=== PATIENT | female | born 1970 | race Caucasian/White ===

== ENCOUNTER 2016-06-10 08:00 | Outpatient (CLI) | payer BC | END 2016-06-10 23:59 | disposition home or self-care (01) | DX: N39.0 Urinary tract infection, site not specified (principal); R30.0 Dysuria ==

== ENCOUNTER 2016-06-13 10:07 | Outpatient (CLI) | payer BC | END 2016-06-13 10:08 | disposition home or self-care (01) | DX: E55.9 Vitamin D deficiency, unspecified (principal); R53.83 Other fatigue ==

== ENCOUNTER 2017-01-19 11:26 | Outpatient (CLI) | payer BC | END 2017-01-19 11:27 | disposition home or self-care (01) | LOC: LAB.F 11:26 | PROVIDERS: ATTEND Physician Assistant Medical | DX: R63.5 Abnormal weight gain (principal); R53.83 Other fatigue | CPT/HCPCS: 36415; 84443 ==

== ENCOUNTER 2017-01-22 14:34 | Outpatient (CLI) | payer BC ==
[2017-01-22 19:01] LABS: FOLLICLE STIMULATING HORMONE 105.23 mIU/mL
[2017-01-22 19:02] LABS: LUTEINIZING HORMONE 90.37 mIU/mL
== END 2017-01-22 14:35 | disposition home or self-care (01) ==
LOC: LAB.F 14:34
PROVIDERS: ATTEND Physician Assistant Medical
DX: N95.1 Menopausal and female climacteric states (principal)
CPT/HCPCS: 36415; 82670; 83001; 83002

== ENCOUNTER 2017-03-09 14:48 | Outpatient (CLI) | payer BC ==
[2017-03-09 18:48] LABS: ALBUMIN/GLOBULIN RATIO 1.5 (1.0-2.2); BILIRUBIN,TOTAL 0.6 mg/dL (0.2-1.0); CALCIUM 9.5 mg/dL (8.5-10.3); CREATININE 0.8 mg/dL (0.4-1.0); POTASSIUM 3.9 mmol/L (3.5-5.0); TOTAL PROTEIN 7.3 g/dL (6.7-8.2)
== END 2017-03-09 14:49 | disposition home or self-care (01) ==
LOC: LAB.F 14:48
PROVIDERS: ATTEND Physician Assistant Medical
DX: N95.1 Menopausal and female climacteric states (principal); Z79.890 Hormone replacement therapy
CPT/HCPCS: 36415; 80053; 82670

== ENCOUNTER 2017-11-19 08:00 | Outpatient (CLI) | payer BC | END 2017-11-19 08:01 | disposition home or self-care (01) | LOC: LAB.R 08:00 | PROVIDERS: ATTEND Obstetrics & Gynecology | DX: N95.2 Postmenopausal atrophic vaginitis (principal) | CPT/HCPCS: 87480; 87510; 87660 ==

== ENCOUNTER 2018-02-18 15:32 | Emergency (ER) | payer BC ==
[2018-02-18 15:43] VITALS: BP 114/69
--- NOTE | 2018-02-18 16:16 | XRAY Report ---
Reason: coccygeal pain Procedure Date: 02/18/2018 Accession Number: [id number] / [id number] Procedure: XR - Sacrum/Coccyx CPT Code: FULL RESULT: EXAM: SACRUM AND COCCYX RADIOGRAPHY EXAM DATE: 02/18/2018 04:07 PM. HISTORY: Coccygeal pain. COMPARISONS: None. TECHNIQUE: 2 views. FINDINGS: Alignment: Normal. The sacrum and coccyx are normally aligned. Bones: Normal. No fracture or bone lesion. Joints: Normal. The sacroiliac joints and visualized hips are within normal limits. Soft Tissues: Unremarkable. IMPRESSION: Normal sacrum and coccyx radiography. [facility]
--- NOTE | 2018-02-18 16:26 | ED Physician Documentation ---
History of Present Illness - Stated complaint Stated Complaint: TAILBONE PX - Chief complaint Chief Complaint: General - History obtained from History obtained from: Patient - History of Present Illness Timing: How many weeks ago (2) - Additonal information Additional information: The patient is a 48-year-old female who presents with coccygeal pain. Her symptoms started 2 weeks ago while on an airplane, and have persisted since that time. She denies any traumatic injury. She denies fever, and denies pain with bowel movements. She has no history of similar symptoms in the past. She denies numbness or weakness in her lower extremities. Review of Systems Constitutional: denies: Fever Respiratory: denies: Dyspnea, Cough GI: denies: Abdominal Pain, Nausea, Vomiting : denies: Dysuria Skin: denies: Rash Musculoskeletal: reports: Other (Coccygeal pain.). 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: Ovarian cysts : None HEENT: None Psych: Depression, Anxiety, Panic attacks Musculoskeletal: Osteoarthritis, Other Derm: None - Past Surgical History Past Surgical History: Yes Ortho: Other /EXCAVATOR OPERATOR: Tubal ligation - Present Medications Home Medications: Ambulatory Orders Medication Instructions Recorded Confirmed Bupropion HCl [Wellbutrin] 150 mg PO BID 10/22/14 09/03/15 Cyclobenzaprine [Flexeril] 10 mg PO DAILY 10/22/14 09/03/15 Ondansetron Odt [Zofran] 4 mg TL Q6H PRN #10 tablet 10/22/14 09/03/15 Acyclovir 400 mg PO BID 09/03/15 09/03/15 Hydrocodone/Acetaminophen [Vicodin 1 each PO QID PRN 02/18/18 02/18/18 Es 7.5-300 mg Tablet] Menopause Medication 02/18/18 cephALEXin [Cephalexin] 500 mg PO TID #21 tablet 02/18/18 - Allergies Allergies/Adverse Reactions: Allergies Allergy/AdvReac Type Severity Reaction Status Date / Time No Known Drug Allergies Allergy Verified 02/18/18 15:42 - Social History Does the pt smoke?: Yes Smoking Status: Current every day smoker Does the pt drink ETOH?: No Does the pt have substance abuse?: No - POLST Patient has POLST: No PD ED PE NORMAL - Vitals Vital signs reviewed: Yes (normal) - General General: Alert and oriented X 3, Well developed/nourished - HEENT HEENT: Atraumatic - Respiratory Respiratory: No respiratory distress - Abdomen Abdomen: Soft, Non tender - Back Back: No CVA TTP, Other (There is tenderness to palpation over the coccygeal segments. There is no soft tissue swelling or erythema. There is no break in the integument.) - Derm Derm: No rash - Extremities Extremities: No edema, No calf tenderness / cord - Neuro Neuro: Alert and oriented X 3, No motor deficit, No sensory deficit Results - Vitals Vitals: Oxygen O2 Source Room air - Rads (name of study) sacral/coccygeal xray Radiology: Prelim report reviewed, EMP read contemporaneously, See rad report (Normal sacrum and coccygeal radiography.) PD MEDICAL DECISION MAKING - ED course Complexity details: reviewed results, re-evaluated patient, considered differential, d/w patient ED course: The underlying cause for the patient's coccygeal pain is uncertain at this time. There is no bony abnormality detected on x-ray examination. There is no evidence of abscess or cellulitis on examination. She does not have a history of traumatic injury. I discussed with her the results of her examination and x-ray. Out of concern for a possible early infectious etiology, she is being discharged with prescription for cephalexin. I discussed with her the importance of outpatient follow-up, as well as potentially worrisome signs or symptoms that should prompt reevaluation in the emergency department. Departure - Departure Disposition: 01 Home, Self Care Clinical Impression: Coccygeal pain Condition: Stable Instructions: ED Contusion Sacrum Coccyx Follow-Up: [facility] [Provider Group] Prescriptions: cephALEXin [Cephalexin] 500 mg PO TID #21 tablet Comments: Take cephalexin 3 times daily as prescribed. You can use up to 800 mg 3 times daily for its anti-inflammatory effect. Follow-up with your primary physician within 2 weeks. Call to schedule appointment. Return to the emergency department if increasing pain or swelling in the coccygeal region, or otherwise worsening symptoms. Discharge Date/Time: 02/18/18 16:42
== END 2018-02-18 16:42 | disposition home or self-care (01) ==
LOC: ED 15:32
DX: M53.3 Sacrococcygeal disorders, not elsewhere classified (principal); F17.200 Nicotine dependence, unspecified, uncomplicated
CPT/HCPCS: 72220; 99283

== ENCOUNTER 2018-05-03 13:36 | Outpatient (CLI) | payer BC ==
[2018-05-03 19:16] LABS: BASOPHILS % (AUTO) 0.3 %; EOSINOPHILS % (AUTO) 0.6 %; LYMPHOCYTES # (AUTO) 2.3 10^3/uL (1.5-3.5); LYMPHOCYTES % (AUTO) 28.1 %; MEAN CORPUSCULAR HEMOGLOBIN 31.9 pg (27.0-31.0); MEAN CORPUSCULAR HGB CONC 33.1 g/dL (32.0-36.0); MEAN CORPUSCULAR VOLUME 96.4 fL (81.0-99.0); MEAN PLATELET VOLUME 8.8 fL (7.9-10.8); MONOCYTES # (AUTO) 0.3 10^3/uL (0.0-1.0); MONOCYTES % (AUTO) 3.9 %; NEUTROPHILS # (AUTO) 5.5 10^3/uL (1.5-6.6); NEUTROPHILS % (AUTO) 67.1 %; PLT - PLATELET COUNT 252 10^3/uL (130-450); RED CELL DISTRIBUTION WIDTH 14.2 % (12.0-15.0); WHITE BLOOD COUNT 8.3 x10^3/uL (4.8-10.8)
[2018-05-03 19:45] LABS: ALBUMIN 3.8 g/dL (3.2-5.5); ALBUMIN/GLOBULIN RATIO 1.3 (1.0-2.2); BILIRUBIN,TOTAL 0.5 mg/dL (0.2-1.0); CALCIUM 9.2 mg/dL (8.5-10.3); CREATININE 0.9 mg/dL (0.4-1.0); TOTAL PROTEIN 6.7 g/dL (6.7-8.2)
[2018-05-03 19:48] LABS: THYROID STIMULATING HORMONE 0.87 uIU/mL (0.34-5.60)
[2018-05-03 19:50] LABS: FREE T4 (FREE THYROXINE) 0.83 ng/dL (0.58-1.64)
== END 2018-05-03 23:59 | disposition home or self-care (01) ==
LOC: LAB.N 13:36
PROVIDERS: ATTEND Obstetrics & Gynecology
DX: R68.82 Decreased libido (principal); N95.1 Menopausal and female climacteric states
CPT/HCPCS: 36415; 80053; 82670; 84439; 84443; 85025

== ENCOUNTER 2018-05-03 13:36 | Outpatient (CLI) | payer BC ==
--- NOTE | 2018-05-04 01:35 | XRAY Report ---
Reason: TOBACCO ABUSE Procedure Date: 05/03/2018 Accession Number: [id number] / [id number] Procedure: XRN - Chest 2 View X-Ray CPT Code: 82408 FULL RESULT: EXAM: CHEST RADIOGRAPHY EXAM DATE: 05/03/2018 01:56 PM. CLINICAL HISTORY: TOBACCO ABUSE. COMPARISON: CXR 10/27/2005 11:50 PM. TECHNIQUE: 2 views. FINDINGS: Lungs/Pleura: No focal opacities evident. No pleural effusion. No pneumothorax. Normal volumes. Mediastinum: Heart and mediastinal contours are unremarkable. Other: None. IMPRESSION: Normal 2-view chest radiography. [facility]
== END 2018-05-03 13:37 | disposition home or self-care (01) ==
LOC: DI.N 13:36
PROVIDERS: ATTEND Registered Nurse
DX: F17.200 Nicotine dependence, unspecified, uncomplicated (principal); R68.82 Decreased libido; N95.1 Menopausal and female climacteric states
CPT/HCPCS: 36415; 71046; 80053; 82670; 84439; 84443; 85025

== ENCOUNTER 2018-08-16 08:00 | Outpatient (CLI) | payer BC | END 2018-08-16 23:59 | disposition home or self-care (01) | LOC: LAB.R 08:00 | PROVIDERS: ATTEND Physician Assistant Medical | DX: N39.0 Urinary tract infection, site not specified (principal) | CPT/HCPCS: 87077; 87086; 87181 ==

== ENCOUNTER 2018-08-19 08:01 | Outpatient (CLI) | payer BC | END 2018-08-19 08:02 | disposition home or self-care (01) | LOC: LAB.F 08:01 | PROVIDERS: ATTEND Physician Assistant Medical | DX: N95.1 Menopausal and female climacteric states (principal); N39.0 Urinary tract infection, site not specified | CPT/HCPCS: 36415; 84403; 87086 ==

== ENCOUNTER 2018-08-19 14:36 | Emergency (ER) | payer BC ==
[2018-08-19] MEDS ORDERED: CHERRY SYRUP 10 ML UDC PO ONE (16:17)
[2018-08-19] MEDS ORDERED: DEXAMETHASONE 10 MG/ML VIAL PO STA (16:17)
[2018-08-19] MEDS ORDERED: KETOROLAC 60 MG/2 ML VIAL IM STA (16:17)
--- NOTE | 2018-08-19 16:20 | ED Physician Documentation ---
PD HPI BACK PAIN - Stated complaint Stated Complaint: BACK PAIN - Chief complaint Chief Complaint: Back Pain - History obtained from History obtained from: Patient - History of Present Illness Timing - onset: Today Timing - duration: Hours Timing - details: Abrupt onset, Still present Location: Lower, Left Quality: Pain, Spasm, Sharp Associated symptoms: No: Fever, Weakness, Numbness, Incontinent of urine, Unable to urinate, Hematuria, Incontinent of stool Improves with: Rest, Position Worsened by: Movement, Lifting, Twisting Contributing factors: Other (lifted something heavy earlier in the week.) Similar symptoms before: Has not had sx before Recently seen: Not recently seen - Additional information Additional information: 48-year-old female was at home in her usual state of health today when she bent over to sisal picker something and had sudden onset of severe spasm in the left lower back. She has radiation of the pain down her leg on the outside of her leg. She has retained strength to both of her legs and does not have any perineal anesthesia denies any change in her bowel or bladder. Review of Systems Constitutional: denies: Fever Eyes: denies: Decreased vision Ears: denies: Ear pain Nose: denies: Congestion Throat: denies: Sore throat Respiratory: denies: Cough GI: denies: Abdominal Pain, Abdominal Swelling, Nausea, Vomiting : denies: Dysuria, Frequency Musculoskeletal: reports: Back pain. 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: Ovarian cysts : None HEENT: None Psych: Depression, Anxiety, Panic attacks Musculoskeletal: Osteoarthritis, Other Derm: None - Past Surgical History Past Surgical History: Yes Ortho: Other /POLICEWOMAN: Tubal ligation - Present Medications Home Medications: Ambulatory Orders Medication Instructions Recorded Confirmed Bupropion HCl [Wellbutrin] 150 mg PO BID 10/22/14 09/03/15 Cyclobenzaprine [Flexeril] 10 mg PO DAILY 10/22/14 09/03/15 Ondansetron Odt [Zofran] 4 mg TL Q6H PRN #10 tablet 10/22/14 09/03/15 Acyclovir 400 mg PO BID 09/03/15 09/03/15 Hydrocodone/Acetaminophen [Vicodin 1 each PO QID PRN 02/18/18 02/18/18 Es 7.5-300 mg Tablet] Menopause Medication 02/18/18 cephALEXin [Cephalexin] 500 mg PO TID #21 tablet 02/18/18 Cyclobenzaprine [Flexeril] 10 mg PO TID PRN #20 tablet 08/19/18 Hydrocodone/Acetaminophen 1 - 2 each PO Q6H PRN #14 tablet 08/19/18 [Hydrocodon-Acetaminophen 5-325] - Allergies Allergies/Adverse Reactions: Allergies Allergy/AdvReac Type Severity Reaction Status Date / Time No Known Drug Allergies Allergy Verified 08/19/18 14:55 - Social History Does the pt smoke?: Yes Smoking Status: Current every day smoker Does the pt drink ETOH?: Yes Does the pt have substance abuse?: No - Immunizations Immunizations are current?: No Immunizations: TDAP >10years/unknown - POLST Patient has POLST: No PD ED PE NORMAL - Vitals Vital signs reviewed: Yes (normal ) - General General: Alert and oriented X 3, Well developed/nourished, Other (splinted favoring the left lower back while sitting ) - HEENT HEENT: Atraumatic, PERRL, EOMI - Respiratory Respiratory: No respiratory distress - Back Back: No CVA TTP, No spinal TTP, Other (tenderness to the paraspinous muscles of the lower lumbar spine on the left side extending into the sciatic notch.) - Derm Derm: Normal color, Warm and dry, No rash - Extremities Extremities: No deformity, No edema - Neuro Neuro: Alert and oriented X 3, cotton ball bagger 2-12 intact, No motor deficit, No sensory deficit, Normal speech Eye Opening: Spontaneous Motor: Obeys Commands Verbal: Oriented GCS Score: 15 - Psych Psych: Normal mood, Normal affect Results - Vitals Vitals: Vital Signs - 24 hr 08/19/18 14:52 Temperature 36.4 C L Heart Rate 78 Respiratory 16 Rate Blood Pressure 110/69 O2 Saturation 99 Oxygen O2 Source Room air PD MEDICAL DECISION MAKING - ED course Complexity details: considered differential, d/w patient ED course: 48-year-old female with acute lumbar spasm and sciatica has a loading injury several days ago she is administered dexamethasone 10 mg orally and Toradol 60 mg IM. Departure - Departure Disposition: Home, Self Care Clinical Impression: Sciatica Qualifiers: Laterality: left Qualified Code(s): M54.32 - Sciatica, left side Condition: Stable Instructions: ED Sciatica Follow-Up: Minna Rossi PA-C [Primary Care Provider] - Prescriptions: Cyclobenzaprine [Flexeril] 10 mg PO TID PRN #20 tablet PRN Reason: Spasms Hydrocodone/Acetaminophen [Hydrocodon-Acetaminophen 5-325] 1 - 2 each PO Q6H PRN #14 tablet PRN Reason: pain
[2018-08-19 16:38] VITALS: BP 101/66
== END 2018-08-19 16:39 | disposition home or self-care (01) ==
LOC: ED 14:36
DX: M54.42 Lumbago with sciatica, left side (principal); X50.1XXA Overexertion from prolonged static or awkward postures, initial encounter; Y93.89 Activity, other specified; Y92.009 Unspecified place in unspecified non-institutional (private) residence as the place of occurrence of the external cause; F17.200 Nicotine dependence, unspecified, uncomplicated; N95.1 Menopausal and female climacteric states; N39.0 Urinary tract infection, site not specified
CPT/HCPCS: 36415; 84403; 87086; 96372; 99283; A9270

== ENCOUNTER 2018-09-03 17:17 | Emergency (ER) | payer BC ==
[2018-09-03] MEDS ORDERED: DEXAMETHASONE 10 MG/ML VIAL IM STA (18:22)
[2018-09-03] MEDS ORDERED: KETOROLAC 60 MG/2 ML VIAL IM STA (18:22)
--- NOTE | 2018-09-03 18:24 | ED Physician Documentation ---
PD HPI BACK INJURY - Stated complaint Stated Complaint: BACK PX - History obtained from History obtained from: Patient - History of Present Illness Location: Left (48-year-old woman with chronic hip pain presents with back pain that started 2 weeks ago. It is in the left lumbar spine and radiates into the buttock. It got better after treatment here couple of weeks ago but recurred last night after cleaning the floors. 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 : None HEENT: None Psych: Depression, Anxiety, Panic attacks Musculoskeletal: Osteoarthritis, Other Derm: None - Past Surgical History Past Surgical History: Yes Ortho: Other /CAREER TECHNICAL SUPERVISOR: Tubal ligation - Present Medications Home Medications: Ambulatory Orders Medication Instructions Recorded Confirmed Bupropion HCl [Wellbutrin] 150 mg PO BID 10/22/14 09/03/15 Ondansetron Odt [Zofran] 4 mg TL Q6H PRN #10 tablet 10/22/14 09/03/18 RX: Cyclobenzaprine [Flexeril] 10 mg PO DAILY 10/22/14 09/03/15 RX: Acyclovir 400 mg PO BID 09/03/15 09/03/15 Hydrocodone/Acetaminophen [Vicodin 1 each PO QID PRN 02/18/18 02/18/18 Es 7.5-300 mg Tablet] Menopause Medication 02/18/18 RX: cephALEXin [Cephalexin] 500 mg PO TID #21 tablet 02/18/18 Cyclobenzaprine [Flexeril] 10 mg PO TID PRN #20 tablet 08/19/18 Hydrocodone/Acetaminophen 1 - 2 each PO Q6H PRN #14 tablet 08/19/18 09/03/18 [Hydrocodon-Acetaminophen 5-325] Oxycodone HCl/Acetaminophen 1 - 2 each PO Q6H PRN #14 tablet 09/03/18 [Percocet 5-325 mg Tablet] RX: predniSONE [Deltasone] 20 mg PO [id number] #21 tab 09/03/18 - Allergies Allergies/Adverse Reactions: Allergies Allergy/AdvReac Type Severity Reaction Status Date / Time No Known Drug Allergies Allergy Verified 09/03/18 17:38 - Social History Does the pt smoke?: Yes Smoking Status: Current every day smoker Does the pt drink ETOH?: Yes Does the pt have substance abuse?: No - Immunizations Immunizations are current?: No Immunizations: TDAP >10years/unknown - POLST Patient has POLST: No PD ED PE NORMAL - Vitals Vital signs reviewed: Yes - General General: Alert and oriented X 3, Other (Slightly uncomfortable, laying right lateral decubitus) - Back Back: No spinal TTP, Other (Tender in the left sciatic notch with slightly diminished sensation over the left thigh and medial calf, but intact Achilles and patellar reflexes and flexion extension at the ankles.) - Derm Derm: Normal color, No rash - Neuro Neuro: Alert and oriented X 3, Normal speech Results - Vitals Vitals: Vital Signs - 24 hr 09/03/18 09/03/18 17:35 20:12 Temperature 36.8 C Heart Rate 76 67 Respiratory 15 18 Rate Blood Pressure 110/43 L 111/64 O2 Saturation 97 96 Oxygen O2 Source Room air - Labs Labs: Laboratory Tests 09/03/18 18:58 Urine Color YELLOW Urine Clarity CLEAR Urine pH 7.0 Ur Specific [place] 1.010 Urine Protein NEGATIVE Urine Glucose (UA) NEGATIVE Urine Ketones NEGATIVE Urine Occult Blood NEGATIVE Urine Nitrite NEGATIVE Urine Bilirubin NEGATIVE Urine Urobilinogen 0.2 (NORMAL) Ur Leukocyte Esterase NEGATIVE Ur Microscopic Review NOT INDICATED Urine Culture Comments NOT INDICATED PD MEDICAL DECISION MAKING - ED course ED course: 48-year-old woman who presents with left-sided sciatica. She had a concern about renal colic, but seemed inconsistent to me. The urinalysis was checked and negative for hematuria. After the administration of IM medications she was feeling much better. Departure - Departure Disposition: 01 Home, Self Care Clinical Impression: Sciatica Condition: Good Record reviewed to determine appropriate education?: Yes Instructions: ED Sciatica Prescriptions: Oxycodone HCl/Acetaminophen [Percocet 5-325 mg Tablet] 1 - 2 each PO Q6H PRN #14 tablet PRN Reason: pain RX: predniSONE [Deltasone] 20 mg PO [id number] #21 tab Comments: Call your pain management physician on Thursday and let them know about the prescriptions he received today. Return for new or worsening symptoms. Discharge Date/Time: 09/03/18 20:13
[2018-09-03 19:31] LABS: BILIRUBIN,URINE NEGATIVE (NEGATIVE); GLUCOSE, URINE (UA) NEGATIVE (NEGATIVE); KETONES,URINE (UA) NEGATIVE (NEGATIVE); LEUKOCYTE ESTERASE, URINE NEGATIVE (NEGATIVE); NITRITE,URINE NEGATIVE (NEGATIVE); OCCULT BLOOD,URINE NEGATIVE (NEGATIVE); PROTEIN,URINE NEGATIVE (NEGATIVE); UROBILINOGEN,URINE 0.2 (NORMAL) E.U./dL (NORMAL)
[2018-09-03 19:34] LABS: CLARITY,URINE CLEAR (CLEAR)
[2018-09-03] MEDS ORDERED: HYDROmorphone 1 MG/ML CARPUJECT IM STA (19:36)
[2018-09-03 20:13] VITALS: BP 111/64
== END 2018-09-03 20:13 | disposition home or self-care (01) ==
LOC: ED 17:17
DX: M54.42 Lumbago with sciatica, left side (principal); F17.200 Nicotine dependence, unspecified, uncomplicated
CPT/HCPCS: 81003; 96372; 99283; J1170; 81001; 87086

== ENCOUNTER 2018-09-12 17:21 | Emergency (ER) | payer BC ==
[2018-09-12 17:29] VITALS: BP 119/78
[2018-09-12] MEDS ORDERED: BUFFERED LIDOCAINE 10 ML SYRINGE SUBQ STA (17:37)
--- NOTE | 2018-09-12 17:38 | ED Physician Documentation ---
PD HPI UPPER EXT INJURY - Stated complaint Stated Complaint: RT FINGER INJURY - Chief complaint Chief Complaint: Laceration - History obtained from History obtained from: Patient - History of Present Illness Location: Right (She has acrylic nails on and her hand slipped and hit something and tore the acrylic nail off and much of her regular nail off the right thumb at home just prior to arrival. 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 : None HEENT: None Psych: Depression, Anxiety, Panic attacks Musculoskeletal: Osteoarthritis, Other Derm: None - Past Surgical History Past Surgical History: Yes Ortho: Other /PEDIATRIC REGISTERED NURSE: Tubal ligation - Present Medications Home Medications: Ambulatory Orders Medication Instructions Recorded Confirmed Bupropion HCl [Wellbutrin] 150 mg PO BID 10/22/14 09/12/18 Acyclovir 400 mg PO BID 09/03/15 09/12/18 Menopause Medication 02/18/18 Cyclobenzaprine [Flexeril] 10 mg PO TID PRN #20 tablet 08/19/18 09/12/18 Hydrocodone/Acetaminophen 1 - 2 each PO Q6H PRN #14 tablet 08/19/18 09/03/18 [Hydrocodon-Acetaminophen 5-325] predniSONE [Deltasone] 20 mg PO [id number] #21 tab 09/03/18 - Allergies Allergies/Adverse Reactions: Allergies Allergy/AdvReac Type Severity Reaction Status Date / Time No Known Drug Allergies Allergy Verified 09/12/18 17:29 - Social History Does the pt smoke?: Yes Smoking Status: Current every day smoker Does the pt drink ETOH?: Yes Does the pt have substance abuse?: No - Immunizations Immunizations are current?: No Immunizations: TDAP >10years/unknown - POLST Patient has POLST: No PD ED PE NORMAL - Vitals Vital signs reviewed: Yes - General General: Alert and oriented X 3, No acute distress - Extremities Extremities: Other (She has acrylic nails in place, the acrylic nail on the right thumb is basically detention ripped off along with the nail underneath it to the mid nailbed. The break is about detention through the nailbed and horizontal.) - Neuro Neuro: Alert and oriented X 3, Normal speech Results - Vitals Vitals: Vital Signs - 24 hr 09/12/18 17:26 Temperature 36.3 C L Heart Rate 109 H Respiratory 20 Rate Blood Pressure 119/78 O2 Saturation 97 Oxygen O2 Source Room air Procedures - General procedure General procedure: After a digital block with buffered lidocaine the acrylic nail was moved removed in its entirety as well as the distal part of her [place] nail. Departure - Departure Disposition: 01 Home, Self Care Clinical Impression: Fingernail avulsion Qualifiers: Encounter type: initial encounter Qualified Code(s): S61.309A - Unspecified open wound of unspecified finger with damage to nail, initial encounter Condition: Critical Instructions: ED Avulsion Nail Complete
== END 2018-09-12 18:07 | disposition home or self-care (01) ==
LOC: ED 17:21
DX: S61.101A Unspecified open wound of right thumb with damage to nail, initial encounter (principal); W27.8XXA Contact with other nonpowered hand tool, initial encounter; Y93.89 Activity, other specified; F17.200 Nicotine dependence, unspecified, uncomplicated
CPT/HCPCS: 11730; 99282; 99283

== ENCOUNTER 2018-09-27 16:47 | Outpatient (CLI) | payer BC ==
--- NOTE | 2018-09-04 13:58 | ED Physician Documentation ---
ED Addendum - Addendum Addendum: 09/04/18 13:57 Pharmacist called and indicated that Jannie Crespo last filled her 7.5 325 hydrocodone on 08/26/2018 at which time she received her monthly 140 pills. I have asked the pharmacist not to fill the prescription provided by Dr. Argueta yesterday.
--- NOTE | 2018-09-28 09:36 | Mammography Report ---
Reason: SCREENING MAMMO Procedure Date: 09/27/2018 Accession Number: [id number] / [id number] Procedure: JUAN ANTONIO - Screening Mammo w/Roberto CPT Code: FULL RESULT: EXAM: Screening Mammo w/Roberto DATE: 09/27/2018 5:10 PM CLINICAL HISTORY: Screening TECHNIQUE: (B) - Bilateral CC and MLO 2-D and 3-D views were obtained. COMPARISON: None PARENCHYMAL PATTERN: (A) - The breasts demonstrate scattered fibroglandular densities bilaterally. FINDINGS: There are no suspicious masses, calcifications, or areas of distortion. IMPRESSION: Negative examination. BI-RADS category 1. RECOMMENDATION: (ANNUAL) - Recommend routine annual screening mammography. BI-RADS CATEGORY: (1) - Negative. STANDARD QUALIFYING STATEMENTS: 1. This examination was not reviewed with the aid of Computer-Aided Detection (CAD). 2. A negative or benign imaging report should not preclude biopsy if clinically suspicious findings are present. 3. Dense breasts may obscure an underlying neoplasm. 4. This examination was reviewed with the aid of 3D breast imaging (tomosynthesis).
== END 2018-09-27 16:48 | disposition home or self-care (01) ==
LOC: DI 16:47
PROVIDERS: ATTEND Physician Assistant Medical
DX: Z12.31 Encounter for screening mammogram for malignant neoplasm of breast (principal)
CPT/HCPCS: 77063; 77067

== ENCOUNTER 2019-09-06 18:17 | Emergency (ER) | payer BC ==
[2019-09-06] MEDS ORDERED: BUFFERED LIDOCAINE 10 ML SYRINGE SUBQ STA (18:54)
--- NOTE | 2019-09-06 19:59 | ED Physician Documentation ---
PD HPI UPPER EXT INJURY - Stated complaint Stated Complaint: RT WRIST WOUND - Chief complaint Chief Complaint: General - History obtained from History obtained from: Patient - History of Present Illness Location: Right, Forearm Type of injury: Foreign body Where injury occurred: Home Timing - onset: Today Timing - duration: Minutes Timing - details: Abrupt onset, Still present Improved by: Rest, Immobilization Worsened by: Moving, Palpating Associated symptoms: Swelling. No: Weakness, Numbness, Tingling Contributing factors: No: Anticoagulated Similar symptoms before: Diagnosis (spinter) Recently seen: Not recently seen - Additonal information Additional information: 49-year-old female was working in her garden today when she ran her arm against the top of a wooden rail of the raised garden bed and sustained a sliver to the forearm on the right volar aspect. She can feel a foreign body and has pain from a foreign body sensation she is not able to see the end of the foreign body she does have an entry wound associated with a sliver. She believes it would was a 2 x 12 piece of fir. 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: Ovarian cysts : None HEENT: None Psych: Depression, Anxiety, Panic attacks Musculoskeletal: Osteoarthritis, Other Derm: None - Past Surgical History Past Surgical History: Yes Ortho: Other /HORSE GROOMER: Tubal ligation - Present Medications Home Medications: Ambulatory Orders Medication Instructions Recorded Confirmed Bupropion HCl [Wellbutrin] 150 mg PO BID 10/22/14 09/12/18 Acyclovir 400 mg PO BID 09/03/15 09/12/18 Menopause Medication 02/18/18 Cyclobenzaprine [Flexeril] 10 mg PO TID PRN #20 tablet 08/19/18 09/12/18 Hydrocodone/Acetaminophen 1 - 2 each PO Q6H PRN #14 tablet 08/19/18 09/03/18 [Hydrocodon-Acetaminophen 5-325] predniSONE [Deltasone] 20 mg PO [id number] #21 tab 09/03/18 - Allergies Allergies/Adverse Reactions: Allergies Allergy/AdvReac Type Severity Reaction Status Date / Time No Known Drug Allergies Allergy Verified 09/12/18 17:29 - Social History Does the pt smoke?: Yes Smoking Status: Current every day smoker Does the pt drink ETOH?: Yes Does the pt have substance abuse?: No - Immunizations Immunizations are current?: No Immunizations: TDAP >10years/unknown - POLST Patient has POLST: No PD ED PE NORMAL - Vitals Vital signs reviewed: Yes (normal ) - General General: Alert and oriented X 3, No acute distress, Well developed/nourished - HEENT HEENT: Atraumatic, PERRL, EOMI - Respiratory Respiratory: No respiratory distress - Derm Derm: Normal color, Warm and dry, No rash - Extremities Extremities: No deformity, No edema, Other (Over the volar surface of the right forearm over the distal one third there is a puncture wound entering on the ulnar aspect and there is a palpable foreign body under that in a linear fashion directly across from that. 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5 cm incision is made directly over the top of the foreign body and the area was explored and no foreign body was identified. With further exploration a 1.5 cm wooden sliver was removed from the distal end of the incision. This looks like the broken off and of a splinter and there is nothing in the proximal portion of the tract.Two 4-0 sutures were placed to reapproximate the tissues.) PD MEDICAL DECISION MAKING - ED course Complexity details: reviewed results, re-evaluated patient, considered differential, d/w patient ED course: 49-year-old female with a foreign body in the right forearm has successful rem oval of a sliver with incision and exploration. Departure - Departure Disposition: 01 Home, Self Care Clinical Impression: Foreign body of skin of right forearm Condition: Stable Instructions: ED Foreign Body Soft Tissue Removed Follow-Up: Minna Rossi PA-C [Primary Care Provider] -
[2019-09-06 20:11] VITALS: BP 120/70
== END 2019-09-06 20:10 | disposition home or self-care (01) ==
LOC: ED 18:17
DX: S50.851A Superficial foreign body of right forearm, initial encounter (principal); W22.09XA Striking against other stationary object, initial encounter; Y93.H2 Activity, gardening and landscaping; Y92.007 Garden or yard of unspecified non-institutional (private) residence as the place of occurrence of the external cause; F17.200 Nicotine dependence, unspecified, uncomplicated
CPT/HCPCS: 10120

== ENCOUNTER 2019-10-21 17:24 | Emergency (ER) | payer OTHER, BC ==
[2019-10-21] MEDS ORDERED: HYDROmorphone 1 MG/ML CARPUJECT IM STA (17:58)
--- NOTE | 2019-10-21 18:00 | ED Physician Documentation ---
PD HPI LOWER EXT INJURY - Stated complaint Stated Complaint: RT HIP PX - Chief complaint Chief Complaint: Ext Problem - History obtained from History obtained from: Patient - History of Present Illness PD HPI LOW EXT INJURY LOCATION: Right, Hip Type of injury: Fall - Additional information Additional information: 49-year-old woman with chronic right hip pain treated with hydrocodone by her primary care physician. 2 weeks ago she fell, she slipped and then did the splits and then hit her right hip causing an increase and different quality of pain there. She is able to walk and bear weight. The worst thing is when she is rolling over in bed. Pain is unrelieved by hydrocodone. Previous history of the hip as it sounds like she had a torn labrum, then surgeries to treat that, subchondral cysts which were shaved away. 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 - Present Medications Home Medications: Ambulatory Orders Medication Instructions Recorded Confirmed Bupropion HCl [Wellbutrin] 150 mg PO BID 10/22/14 09/12/18 Acyclovir 400 mg PO BID 09/03/15 09/12/18 Menopause Medication 02/18/18 Cyclobenzaprine [Flexeril] 10 mg PO TID PRN #20 tablet 08/19/18 09/12/18 Hydrocodone/Acetaminophen 1 - 2 each PO Q6H PRN #14 tablet 08/19/18 09/03/18 [Hydrocodon-Acetaminophen 5-325] predniSONE [Deltasone] 20 mg PO [id number] #21 tab 09/03/18 Oxycodone HCl/Acetaminophen 1 - 2 each PO Q6H PRN #14 tablet 10/21/19 [Percocet 5-325 mg Tablet] - Allergies Allergies/Adverse Reactions: Allergies Allergy/AdvReac Type Severity Reaction Status Date / Time No Known Drug Allergies Allergy Verified 10/21/19 17:30 - Social History Does the pt smoke?: Yes Smoking Status: Current every day smoker Does the pt drink ETOH?: Yes Does the pt have substance abuse?: No - Immunizations Immunizations are current?: No Immunizations: TDAP >10years/unknown - POLST Patient has POLST: No PD ED PE NORMAL - Vitals Vital signs reviewed: Yes - General General: Alert and oriented X 3, No acute distress - Abdomen Abdomen: Normal bowel sounds, Soft, Non tender - Back Back: No spinal TTP, Other (The patient has equal and normal Achilles and patellar reflexes bilaterally. Normal sensation in all areas of the legs. Patient denies saddle anesthesia. Normal strength in flexion-extension at the ankles, knees, and flexion of the hips.) - Extremities Extremities: Other (Right hip is mildly tender laterally, pain especially with abduction, less so internal and external rotation. No deformity.) - Neuro Neuro: Alert and oriented X 3, Normal speech Results - Vitals Vitals: Vital Signs - 24 hr 10/21/19 10/21/19 17:31 18:31 Temperature 36.5 C Heart Rate 71 70 Respiratory 16 16 Rate Blood Pressure 134/71 H 138/68 H O2 Saturation 99 99 Oxygen O2 Source Room air - Rads (name of study) CT pelvis Radiology: EMP read contemporaneously PD MEDICAL DECISION MAKING - ED course ED course: 49-year-old woman with chronic right hip pain now worse after a fall. CT imaging shows no acute fractures, however my view of the CT images demonstrate vacuum phenomenon in the right SI joints as well as subchondral cysts in the acetabulum. She was given some pain medication here and advised close follow-up with her orthopedic surgeon and given a copy of the CAT scan on CD for follow- up. The [place] prescription monitoring program was queried with regard to this patient. No concerning findings were found. Departure - Departure Disposition: 01 Home, Self Care Clinical Impression: Right hip pain, Fall from ground level Condition: Good Record reviewed to determine appropriate education?: Yes Instructions: Osteoarthritis Common Sites Prescriptions: Oxycodone HCl/Acetaminophen [Percocet 5-325 mg Tablet] 1 - 2 each PO Q6H PRN #14 tablet PRN Reason: pain Comments: Follow-up with your surgeon, soon as possible. Take the CAT scan on CD with you. Return for new or worsening symptoms. Do not drink or drive while taking narcotic pain medication. Note that many narcotic pain relievers also contain Tylenol/acetaminophen. Please ensure that your total dose of acetaminophen from all sources does not exceed 3 g (3000 mg) per day. You may get constipated while on this medication. Take a stool softener such as Colace twice a day while you are on it. Also add an prul-[id number] laxative such as senna or MiraLAX on any day that you do not have a bowel movement. If you received a narcotic pain medication or sedative while in the emergency department, do not drive for the next 24 hours.
--- NOTE | 2019-10-21 18:51 | CT Report ---
PROCEDURE: LOWER EXTREMITY WO - RT INDICATIONS: L hip injury, mult prior surgeries TECHNIQUE: Noncontrast 3 mm axial sections acquired of the right lower extremity, with coronal and sagittal refo rmats. COMPARISON: None. FINDINGS: Image quality: Excellent. Bones: There are no visualized fractures or dislocations. Osseous alignment is within normal limits. Soft tissues: Visualized soft tissue structures within the abdomen and pelvis are within normal limi ts. No adenopathy. IMPRESSION: No visualized fracture or dislocation within the right hip/lower extremity. Reviewed by: Leila Lama MD on 10/21/2019 6:50 PM PDT Approved by: Leila Lama MD on 10/21/2019 6:50 PM PDT Station ID: [id number]
[2019-10-21 19:05] VITALS: BP 127/81
== END 2019-10-21 19:14 | disposition home or self-care (01) ==
LOC: ED 17:24
DX: M25.551 Pain in right hip (principal); G89.29 Other chronic pain; W01.0XXA Fall on same level from slipping, tripping and stumbling without subsequent striking against object, initial encounter; M25.851 Other specified joint disorders, right hip; F17.200 Nicotine dependence, unspecified, uncomplicated
CPT/HCPCS: 73700; 99283; 99284; J1170

== ENCOUNTER 2019-11-08 12:01 | Outpatient (CLI) | payer BC | END 2019-11-08 12:02 | disposition home or self-care (01) | LOC: LAB 12:01 | PROVIDERS: ATTEND Obstetrics & Gynecology | DX: R68.82 Decreased libido (principal); R53.83 Other fatigue | CPT/HCPCS: 36415; 84403; 84443 ==

== ENCOUNTER 2019-11-23 10:41 | Outpatient (CLI) | payer BC ==
[2019-11-23 11:32] VITALS: BP 105/75
--- NOTE | 2019-11-23 11:32 | SLEEP CARE CONSULTATION ---
Information from patient questionnaire entered by Della Lund. I have reviewed and concur with the information entered by Della Lund. This document represents the service I personally performed and the decisions made by me, Alka Saldivar ARNP. History of Present Illness Service Date and Time: 11/23/2019 1041 Reason for Visit: New patient Chief Complaint: reports: Insomnia (nightly, can't stay asleep and sometimes can't get to sleep quickly), Unrefreshed sleep, Snoring, Excessive daytime sleepiness, Observed pauses in breathing, Fatigue, Frequent awakenings at night Duration of Symptoms: years Usual bedtime: 10-11 pm Time it takes to fall asleep: varies Snores at night: Yes Observed to quit breathing while asleep: No (i dont know) Sleeps alone due to snoring: No Number of times waking at night: several Reasons for waking at night: reports: Snoring, Gasping for air, Pain, Bathroom. denies: Choking Toss, Turn, or Twitch while sleeping: Yes Recalls having dreams: Yes (sometimes) Usually gets out of bed at: 5-6 am Feels refreshed in the morning: No Morning headache: Yes (almost every morning, takes something if last longer than hour, 3 x week) Sleepy or fatigued during the day: Yes Ever fallen asleep while driving: No Takes day naps: No Dreams during day naps: No Prior sleep studies: No Additional HPI information: Patient has a history of loud snoring, insomnia, unrefreshed sleep, frequent night awakenings and excessive daytime sleepiness. She states she has trouble going to sleep sometimes but more frequently wakes up during the night and is unable to go back to sleep. She is tired through out the day. She tells me both her daughters snore and there is a history of small lower jaws in her family. She states she wakes up nearly every morning with a headache. She will take an analgesic if is has not gone away in an hour. She states she does not have a history of migraines. - Parasomnia Symptoms Ever been unable to move upon waking from sleep: No Walks in sleep: Yes Talks in sleep: Yes Ever acted out dreams in sleep: Yes (hitting/kicking out during bad dreams) Ever felt weak in the knees when startled or emotional: Yes Bothered by creepy, crawly, restless sensations in legs: Yes (varies, from nightly to intermittent, takes muscle relaxer which helps) Problems with memory or concentration: Yes Subjective Initial [place] Sleepiness Scale score: 15 (in 2019) Past Medical History Past Medical History: reports: Claustrophobia, Arthritis, Anxiety, Depression, GERD, Other (pain management for hips, menopause treatment). denies: Hypertension, Congestive Heart Failure, Diabetes, Stroke, Coronary Heart Disease, Insulin resistance, Arrythmia, Hypothyroidism, Anemia, Mood disorder Social History The patient's occupation is a Retired. Patient is and lives in [place]. Have you smoked in the past 12 months: Yes (trying to quit, prescribed chantrix) Cigarettes per day (20/pack): 20 Years of smokin Smoking Pack Years: 30.0 Alcohol use: No Caffeine use: Yes Caffeine amount and frequency: 4-5 cups a day Family History Family history of sleep disordered breathing: Yes (Dad, Grandma, both daughters) Family Hx Sleep Apnea: Father: Snoring, Grandparent: Snoring Allergies and Home Medications Drug allergies reviewed: Yes (NKDA) Home medication list reviewed: Yes Allergy and home medication list: Diclofenac Sod EC 75 mg Bupropion Hcl XL 300 mg Chantix 1 mg Cyclobenzaprine 10 mg Progesterone 200 mg Hydrocodone 7.5 mg Dottipatch 0.1 mg Estradiol cream 0.1 mg Review of Systems Weight gain over past 5 years: 30 Cardiovascular: reports: leg or foot swelling, have to sleep sitting up. denies: high blood pressure, palpitations, chest pain, irregular heart rate or pulse Respiratory: reports: shortness of breath, chronic cough Gastrointestinal: reports: heartburn, diarrhea. denies: difficulty swallowing Urinary: denies: incontinence, frequency, urgency, impotence, other Neurological: reports: headaches. denies: seizure, head trauma, disorientation, gait or balance problems Psychiatric: reports: anxiety, depression, claustrophobia Ear/Nose/Throat: reports: sinus problems (allergies), dry mouth/throat (wakes up with dry mouth, drinks water; every morning), hoarseness, injury to nose, wisdom teeth removed. denies: nasal congestion, nose bleeds, tonsillectomy Endocrine: reports: sluggishness, too hot or cold Musculoskeletal: reports: joint pain, neck pain, back pain, joint swelling, muscle pain or cramping, mobility problems Immunologic: reports: sneezing, allergies to food or environment (seasonal ) Physical Exam Blood Pressure: 105/75 Cuff size: long Heart Rate: 64 O2 Saturation: 98 Height: 5 ft 5 in Weight: 164 lb 3.2 oz Body Mass Index: 27.3 BMI Classification: Overweight Neck circumference: 13.25 HEENT: No craniofacial malformation Nostrils: patent to airflow Turbinates: swollen Septum: midline Mouth and throat: normal Uvula: normal Uvula visualization: 50% Mallampati Class II Tongue: normal in size Tonsils: small Chin and jaw: normal size and position Neck: normal w/o lymphadenopathy or thyromegaly Heart: regular rate and rhythm Lungs: clear bilaterally Impression and Plan 1. Suspected Obstructive Sleep Apnea-Hypopnea Syndrome, as suggested by a history of loud and irregular snoring, insomnia, possible cessation of breath while asleep, gasping or choking in sleep, morning headache, frequent awakening during the night, unrefreshed sleep, and excessive daytime sleepiness. Narrow oropharynx and obesity are common predisposing factors for obstructive sleep apnea-hypopnea syndrome. I recommend proceeding to polysomnography to confirm the diagnosis and to assess severity. If the patient has significant sleep disordered breathing, a manual CPAP titration study will also be performed to find the optimal treatment pressure. I informed the patient of what the sleep studies involve and after some discussion, obtained agreement to proceed. The pathophysiology of obstructive sleep apnea-hypopnea syndrome was discussed with the patient and health risks of cardiovascular and cerebrovascular disease if not treated. AASM brochure for obstructive sleep apnea-hypopnea syndrome given and reviewed. Risks of drowsy driving discussed in detail and patient advised to avoid long distance driving and to sinker puller at the first sign of drowsiness. Patient agreed to plan. * Schedule polysomnography +- manual CPAP titration study. * Avoid long distance driving or driving when feeling sleepy. * Attempt to lose weight. * Review instructions provided by trained office staff on how to prepare for the sleep study. * Return for follow-up after sleep study completed. Visit Type: In Office Time Spent with Patient (minutes): 30 Provider Statement: I spent 100% of the Face to Face Visit with the patient with greater than 50% spent counseling the patient and coordination of care.
== END 2019-11-23 10:42 | disposition home or self-care (01) ==
LOC: SC 10:41
PROVIDERS: ATTEND Nurse Practitioner Family
DX: R06.83 Snoring (principal); G47.10 Hypersomnia, unspecified; R53.83 Other fatigue; R06.81 Apnea, not elsewhere classified; G47.8 Other sleep disorders; E66.3 Overweight; Z68.27 Body mass index [BMI] 27.0-27.9, adult; F17.210 Nicotine dependence, cigarettes, uncomplicated
CPT/HCPCS: 99204; 99212

== ENCOUNTER 2020-01-06 19:30 | Outpatient (CLI) | payer BC | END 2020-01-06 23:59 | LOC: SC 19:30 | PROVIDERS: ATTEND Nurse Practitioner Family | DX: G47.33 Obstructive sleep apnea (adult) (pediatric) (principal) | CPT/HCPCS: 95806 ==

== ENCOUNTER 2020-01-20 16:32 | Outpatient (CLI) | payer BC ==
--- NOTE | 2020-01-20 16:53 | SLEEP CARE CONSULTATION ---
Information from patient questionnaire entered by Rita Hooks. I have reviewed and concur with the information entered by Rita Hooks. This document represents the service I personally performed and the decisions made by me, Alka Saldivar ARNP. History of Present Illness Service Date and Time: 01/20/2020 163 Initial [place] Sleepiness Scale score: 15 (in 2020) Current [place] Sleepiness Scale score: 17 Additional HPI information: ALEYDA NOVAK returns for follow up and results of the recently performed home sleep study. Patient study showed that she has mild obstructive sleep apnea with an average calculated AHI of 9.1, supine AHI 13.0, non-supine 5.1 and a eric oxygen saturation of 80.9%. I explained the pathophysiology behind obstructive sleep apnea. We then spent quite a bit of time discussing different treatment options. For mild obstructive sleep apnea, surgery and oral appliance are alternatives to nasal CPAP therapy but in moderate or severe cases, nasal CPAP is the most effective and reliable treatment. Because apnea is primarily in supine position, then positional management therapy could be effective. Methods discussed such as positioning with pillows, using a T-shirt with tennis balls in the back, and shown commercial products that have a pillow format on back to prevent supine sleep. I reviewed the impact of weight changes on sleep apnea and strongly recommended losing weight. After some discussion, the patient opted to go with the nasal CPAP therapy. Nasal autoCPAP set at 4-15 cmH20 will be ordered with rationale explained. A manual titration study will be ordered if unable to find optimal pressure with office adjustments. I explained how CPAP machine works with sample devices Resp[employer]ics Dreamstation and [employer] [id number] and what to expect when using the machine. Using CPAP every night in order to get used to it was emphasized. Patient advised to put CPAP mask on before getting into bed so as not to fall asleep without CPAP. To assist acclimation to CPAP use, it could also be used for a short time during day while reading or watching TV. The patient was instructed to call the CPAP supplier to discuss any mechanical problem that may occur. If the mask given is uncomfortable or is difficult to keep on through the night even with adjustment, contact the CPAP supplier as many will replace with another mask style if notified before 30 days. If snoring or perceives is not getting enough air or too much air from the machine, notify this office. AASM patient education PAP tips reviewed and given to patient. Patient counseled not drink alcohol less than 4 hours before bedtime as it can increase snoring and apnea. Patient was cautioned about risks of drowsy driving until sleepiness symptoms resolve. Sleep Study - Results Type of Sleep Study: Home sleep study Prior sleep studies: No Polysomnography/Home Sleep Study results: SLEEP TIME AND EFFICIENCY: The sleep study recording began at 11:09:50 PM and ended at 08:42:28 AM. Total recording time was 572.6 minutes. The total sleep time was 510.2 minutes. The sleep efficiency was 89.1 percent. The patient spent 249.7 minutes supine, and spent 260.6 minutes non-supine. The patients own estimate of sleep time was 9.50 hours. RESPIRATORY DATA: The AHI in this report is indexed to sleep time based on actigraphy. The AASM defines this as JP. The AHI on this type 3 Home Sleep Study may understate the AHI determined on a type 1 or 2 study, since EEG is not monitored resulting in the inability to score non-desaturating hypopneas. Based on 4% Calculation: The AHI 4% calculation of 9.1 per hour of recording time was based on a total of 51 scored apneas and 26 scored hypopneas with 4% desaturations. Supine AHI4%: 13.0 per hour. Non-supine AHI4%: 5.1 per hour. Oxygen Summary: Patient's baseline O2 saturation was 98.3 %. The patient spent 3.0 minutes at an oxygen saturation less than 90%, and 0.3 minutes less than 85%. The desaturation index was 5.1 events per hour sleep time. The lowest saturation was 80.9 %. SNORING: The percent of the study time spent snoring was 0.0 %. The Snoring Count was 3 . The Snoring Index was 0.4 . PULSE RATE REVIEW: The mean heart rate was 63 beats per minute. The rate ranged from a low of 34 to a high of 105 beats per minute. DIAGNOSIS CODE: Obstructive Sleep Apnea G47.33 This patient has mild obstructive sleep apnea. Allergies and Home Medications Drug allergies reviewed: Yes (nkda) Home medication list reviewed: Yes (no changes) Review of Systems Review of systems same as previous: Yes (no changes) Physical Exam Heart Rate: 74 O2 Saturation: 100 Height: 5 ft 5 in Weight: 169 lb Body Mass Index: 28.1 BMI Classification: Overweight Impression and Plan 1. Obstructive Sleep Apnea-Hypopnea Syndrome, mild, with lowest oxygen saturation of 80.9%. Obviously this is the cause of the patients symptoms of unrefreshed sleep, and excessive daytime sleepiness. Positive pressure therapy could benefit her anxiety, depression and GERD. As mentioned above, the patient will be started on nasal autoCPAP therapy with pressure set at 4-15 cmH2O. A manual titration study will be completed if unable to find optimal treatment pressure with office adjustments. Compliance guidelines also reviewed. A copy of compliance guidelines will be given for reference at check out. Because the apnea is more severe supine, I instructed to avoid sleeping supine using pillow positioning until able to start CPAP use. * Nasal auto CPAP therapy, pressure at 4-15 cm H2O. * Attempt to lose weight. * Avoid alcohol consumption near bedtime. * Avoid supine sleep until using CPAP. * The patient is again cautioned about driving until sleepiness completely resolves. * Return one month after CPAP obtained. I will assess response to therapy and compliance at that time. Counseling Topics: Weight loss health impact Visit Type: In Office Time Spent with Patient (minutes): 18 Provider Statement: I spent 100% of the Face to Face Visit with the patient with greater than 50% spent counseling the patient and coordination of care.
== END 2020-01-20 16:33 | disposition home or self-care (01) ==
LOC: SC 16:32
PROVIDERS: ATTEND Nurse Practitioner Family
DX: G47.33 Obstructive sleep apnea (adult) (pediatric) (principal)
CPT/HCPCS: 99212; 99213

== ENCOUNTER 2021-01-15 09:16 | Emergency (ER) | payer BC ==
--- NOTE | 2021-01-15 10:07 | ED Physician Documentation ---
History of Present Illness - Stated complaint Stated Complaint: DIZZY - Chief complaint Chief Complaint: Heent - History obtained from History obtained from: Patient - Additonal information Additional information: Patient comes emergency department chief complaint of feeling "dizzy" on and off for the last month and a half. She states that it happens mostly when she gets up to stand or sit after having laid down, or if she bends over and then comes back up. She states she feels a sense of spinning and being off balance. She denies any focal neurologic deficits otherwise. She intermittently has some ringing in her left ear. No hearing loss. No head injury. No other complaints at this time. No history of this previously. Review of Systems Ten Systems: 10 systems reviewed and negative Constitutional: reports: Reviewed and negative Eyes: reports: Reviewed and negative Ears: reports: Reviewed and negative Nose: reports: Reviewed and negative Throat: reports: Reviewed and negative Cardiac: reports: Reviewed and negative Respiratory: reports: Reviewed and negative GI: reports: Reviewed and negative : reports: Reviewed and negative Skin: reports: Reviewed and negative Musculoskeletal: reports: Reviewed and negative Neurologic: reports: Other (Ago) Psychiatric: reports: Reviewed and negative Endocrine: reports: Reviewed and negative Immunocompromised: reports: Reviewed and negative PD PAST MEDICAL HISTORY - Past Medical History Past Medical History: Yes Cardiovascular: None Respiratory: None Neuro: None Endocrine/Autoimmune: None GI: GERD 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: Ovarian cysts : None HEENT: None Psych: Depression, Anxiety, Panic attacks Musculoskeletal: Osteoarthritis, Other Derm: Herpes zoster - Past Surgical History Past Surgical History: Yes Ortho: Other /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: Tubal ligation, Hysterectomy - Present Medications Home Medications: Ambulatory Orders Medication Instructions Recorded Confirmed Bupropion HCl [Wellbutrin] 150 mg PO BID 10/22/14 01/15/21 Acyclovir 400 mg PO BID 09/03/15 01/15/21 Menopause Medication 02/18/18 Cyclobenzaprine [Flexeril] 10 mg PO TID PRN #20 tablet 08/19/18 01/15/21 Oxycodone HCl/Acetaminophen 1 - 2 each PO Q6H PRN #14 tablet 10/21/19 01/15/21 [Percocet 5-325 mg Tablet] Meclizine [Antivert] 25 mg PO Q6H PRN #20 tablet 01/15/21 - Allergies Allergies/Adverse Reactions: Allergies Allergy/AdvReac Type Severity Reaction Status Date / Time No Known Drug Allergies Allergy Verified 01/15/21 09:22 - Social History Does the pt smoke?: Yes Smoking Status: Current every day smoker Does the pt drink ETOH?: Yes Does the pt have substance abuse?: No - Immunizations Immunizations are current?: No Immunizations: TDAP >10years/unknown - POLST Patient has POLST: No PD ED PE NORMAL - Vitals Vital signs reviewed: Yes - General General: Alert and oriented X 3, No acute distress, Well developed/nourished - HEENT HEENT: Atraumatic, PERRL, EOMI, Ears normal, Moist mucous membranes - Neck Neck: Supple, no meningeal sign - Cardiac Cardiac: RRR, No murmur, Strong equal pulses - Respiratory Respiratory: No respiratory distress, Clear bilaterally - Abdomen Abdomen: Soft, Non tender, Non distended - Back Back: No CVA TTP - Derm Derm: Normal color, Warm and dry, No rash - Extremities Extremities: No deformity, No edema, No calf tenderness / cord - Neuro Neuro: Alert and oriented X 3, technical 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 2-12 intact, No motor deficit (Equal, 5+ strength all 4 extremities), No sensory deficit, Normal speech - Psych Psych: Normal mood, Normal affect Results - Vitals Vitals: Oxygen O2 Source Room air - Labs Labs: Laboratory Tests 01/15/21 10:31 Sodium 140 Potassium 4.2 Chloride 106 Carbon Dioxide 25 Anion Gap 9.0 BUN 13 Creatinine 0.8 Estimated GFR (MDRD) 76 L Glucose 99 Calcium 9.5 - Rads (name of study) CT head Radiology: Final report received, EMP read indepedently, See rad report (neg) PD MEDICAL DECISION MAKING - ED course Complexity details: reviewed results, re-evaluated patient, considered differential, d/w patient ED course: The patient was worked up with labs and CT scan of the head, though I suspected that most likely, this was episodic peripheral vertigo. Pt was given a dose of meclizine. Work-up was negative. We have discussed symptomatic management at home, as well as the usual indications for return. Departure - Departure Disposition: 01 Home, Self Care Clinical Impression: Benign positional vertigo Qualifiers: Laterality: unspecified laterality Qualified Code(s): H81.10 - Benign paroxysmal vertigo, unspecified ear Condition: Stable Instructions: ED BPV Vertigo Follow-Up: Inder Crews MD [Physician No Access] - Prescriptions: Meclizine [Antivert] 25 mg PO Q6H PRN #20 tablet PRN Reason: Dizziness Comments: Your labs and CT scan look good. There is no evidence of tumor or other serious cause of your symptoms. Most likely, your dizziness is caused by issues within the inner ear. Usually, this is a self-limited problem which may come and go over months to years of time but individual episodes will resolve after period of days to weeks. You may take the vertigo medicine as needed. Please schedule an appointment to follow-up with your doctor or the ear nose throat specialist if you are not feeling better after a week Discharge Date/Time: 01/15/21 11:30
--- NOTE | 2021-01-15 10:27 | CT Report ---
PROCEDURE: HEAD WO INDICATIONS: vertigo TECHNIQUE: Noncontrast 4.5 mm thick angled axial sections acquired from the foramen magnum to the vertex. For r adiation dose reduction, the following was used: automated exposure control, adjustment of mA and/or kV according to patient size. COMPARISON: None. FINDINGS: Image quality: Excellent. CSF spaces: Basal cisterns are patent. No extra-axial fluid collections. Ventricles are normal in size and shape. Brain: No midline shift. No intracranial masses or hemorrhage. Maza-white matter interface is norm al. Skull and face: Calvarium and visualized facial bones are intact, without suspicious lesions. Sinuses: Visualized sinuses and mastoids are clear. IMPRESSION: CT head without acute intracranial abnormalities. No mass or mass effect. Reviewed by: Nikita Tao MD on 01/15/2021 10:26 AM PDT Approved by: Nikita Tao MD on 01/15/2021 10:26 AM PDT Station ID: [id number]
[2021-01-15] MEDS ORDERED: MECLIZINE 12.5 MG TABLET PO STA (10:36)
[2021-01-15 10:45] LABS: CALCIUM 9.5 mg/dL (8.5-10.3); CREATININE 0.8 mg/dL (0.4-1.0); POTASSIUM 4.2 mmol/L (3.5-5.0)
[2021-01-15 11:30] VITALS: BP 136/70
== END 2021-01-15 11:30 | disposition home or self-care (01) ==
LOC: ED 09:16
DX: H81.10 Benign paroxysmal vertigo, unspecified ear (principal); F17.200 Nicotine dependence, unspecified, uncomplicated
CPT/HCPCS: 36415; 70450; 80048; 93005; 99283; 99284; A9270

== ENCOUNTER 2021-02-26 08:17 | Outpatient (CLI) | payer BC, MEDICAID ==
[2021-02-26 14:52] LABS: BASOPHILS # (AUTO) 0.1 10^3/uL (0.0-0.1); BASOPHILS % (AUTO) 0.8 %; EOSINOPHILS # (AUTO) 0.1 10^3/uL (0.0-0.7); EOSINOPHILS % (AUTO) 2.1 %; HCT - HEMATOCRIT 43.6 % (37.0-47.0); HGB - HEMOGLOBIN 13.7 g/dL (12.0-16.0); LYMPHOCYTES # (AUTO) 1.9 10^3/uL (1.5-3.5); LYMPHOCYTES % (AUTO) 31.8 %; MEAN CORPUSCULAR HEMOGLOBIN 31.1 pg (27.0-31.0); MEAN CORPUSCULAR HGB CONC 31.4 g/dL (32.0-36.0); MEAN CORPUSCULAR VOLUME 98.9 fL (81.0-99.0); MEAN PLATELET VOLUME 10.7 fL (7.9-10.8); MONOCYTES # (AUTO) 0.3 10^3/uL (0.0-1.0); MONOCYTES % (AUTO) 5.4 %; NEUTROPHILS # (AUTO) 3.6 10^3/uL (1.5-6.6); NEUTROPHILS % (AUTO) 59.6 %; PLT - PLATELET COUNT 263 10^3/uL (130-450); RED BLOOD COUNT 4.41 10^6/uL (4.20-5.40); RED CELL DISTRIBUTION WIDTH 13.5 % (12.0-15.0); WHITE BLOOD COUNT 6.1 x10^3/uL (4.8-10.8)
[2021-02-26 15:48] LABS: ALBUMIN 3.7 g/dL (3.2-5.5); ALBUMIN/GLOBULIN RATIO 1.4 (1.0-2.2); ALKALINE PHOSPHATASE 49 IU/L (42-121); ALT ALANINE AMINOTRANSFERASE 12 IU/L (10-60); AST ASPARTATE AMINOTRANSFERASE 12 IU/L (10-42); BILIRUBIN,TOTAL 0.5 mg/dL (0.2-1.0); BUN - BLOOD UREA NITROGEN 13 mg/dL (6-20); CALCIUM 9.2 mg/dL (8.5-10.3); CARBON DIOXIDE - CO2 26 mmol/L (21-32); CHLORIDE 107 mmol/L (101-111); CHOL/HDL RATIO 4.3 (<4.4); CHOLESTEROL 217 mg/dL; CREATININE 0.9 mg/dL (0.4-1.0); GFR - MDRD 66 (>89); GLUCOSE 91 mg/dL (70-100); HDL CHOLESTEROL 50 mg/dL; LDL CHOLESTEROL,CALCULATED 149 mg/dL; POTASSIUM 4.3 mmol/L (3.5-5.0); SODIUM 139 mmol/L (135-145); TOTAL PROTEIN 6.3 g/dL (6.7-8.2); TRIGLYCERIDES 89 mg/dL; VLDL CHOLESTEROL 18 mg/dL
[2021-02-26 15:53] LABS: THYROID STIMULATING HORMONE 0.74 uIU/mL (0.34-5.60)
== END 2021-02-26 08:18 | disposition home or self-care (01) ==
LOC: LAB.S 08:17
PROVIDERS: ATTEND Registered Nurse
DX: G47.33 Obstructive sleep apnea (adult) (pediatric) (principal); R53.83 Other fatigue; G47.00 Insomnia, unspecified; F32.A Depression, unspecified
CPT/HCPCS: 36415; 80053; 80061; 83721; 84443; 85025